=== PATIENT | female | born 1960 | race African-American/Black ===

== ENCOUNTER 2016-12-13 14:22 | Emergency (ER) | payer OTHER ==
[~2016-12-13] VITALS: Ht 167.6 cm; Wt 82.0 kg
[~2016-12-13 14:22] MED LIST: CHLO25TA24 PO; HYDR-3535 PO; LAMI150T PO; LISI-363 PO; LYRI100C PO; NAPR-576 PO; SUST600T4 PO; Z.0.WALKERFRONT
[2016-12-13] MEDS ORDERED: IOHEXOL 350 MG/ML 10 ML VIAL (for RAD DIAG) IVCONTRAST ONE (14:23)
[2016-12-13 14:24] VITALS: BP 141/86; PULSE 61; RESP 14; TEMP 98.8; O2SAT 96
--- NOTE | 2016-12-13 14:29 | PD ---
Physical Exam Time Seen by Provider: 14:28 Narrative Pt presents for evaluation of right sided facial swelling. Woke up this morning with the edema. No history of trauma. No known bites or stings. No dental pain. No fever or chills. Been well otherwise. No oral swelling or difficulty breathing. Data Data Last Documented VS Vital Signs Date Time Temp Pulse Resp B/P (MAP) Pulse Ox O2 Delivery O2 Flow Rate FiO2 12/13/16 22:23 12/13/16 19:15 98.1 45 98 Room Air 12/13/16 17:14 19 Orders Orders Complete Blood Count With Diff (12/13/16 16:00) Comprehensive Metabolic Panel (12/13/16 16:00) Ct Facial Bones W Iv Contrast (12/13/16 ) Iv Access Insert/Monitor (12/13/16 16:00) Iohexol 350 Inj (Omnipaque 350 Inj) (12/13/16 14:23) Clindamycin (Cleocin) (12/13/16 22:00) Labs Laboratory Tests Test 12/13/16 16:30 12/13/16 18:25 White Blood Count 5.6 TH/MM3 Red Blood Count 4.19 MIL/MM3 Hemoglobin 13.6 GM/DL Hematocrit 39.4 % Mean Corpuscular Volume 94.1 FL Mean Corpuscular Hemoglobin 32.5 PG Mean Corpuscular Hemoglobin Concent 34.6 % Red Cell Distribution Width 15.2 % Platelet Count 297 TH/MM3 Mean Platelet Volume 7.9 FL Neutrophils (%) (Auto) 51.1 % Lymphocytes (%) (Auto) 35.6 % Monocytes (%) (Auto) 10.6 % Eosinophils (%) (Auto) 1.9 % Basophils (%) (Auto) 0.8 % Neutrophils # (Auto) 2.8 TH/MM3 Lymphocytes # (Auto) 2.0 TH/MM3 Monocytes # (Auto) 0.6 TH/MM3 Eosinophils # (Auto) 0.1 TH/MM3 Basophils # (Auto) 0.0 TH/MM3 CBC Comment DIFF FINAL Differential Comment Blood Urea Nitrogen 19 MG/DL Creatinine 1.31 MG/DL Random Glucose 106 MG/DL Total Protein 7.1 GM/DL Albumin 3.2 GM/DL Calcium Level 8.5 MG/DL Alkaline Phosphatase 80 U/L Aspartate Amino Transf (AST/SGOT) 15 U/L Alanine Aminotransferase (ALT/SGPT) 14 U/L Total Bilirubin 0.2 MG/DL Sodium Level 143 MEQ/L Potassium Level 3.7 MEQ/L Chloride Level 108 MEQ/L Carbon Dioxide Level 27.1 MEQ/L Anion Gap 8 MEQ/L Estimat Glomerular Filtration Rate 51 ML/MIN MDM Medical Record Reviewed: Yes Supervised Visit with TYRA: No Scripts Clindamycin (Clindamycin) 300 Mg Cap 300 MG PO Q6H for Infection for 10 Days, #40 CAP 0 Refills Prov: Clari Duong 12/13/16 Condition: Stable Linda Stacy Dec 13, 2016 14:29
--- NOTE | 2016-12-13 16:03 | PD ---
HPI Chief Complaint: Facial Pain or Swelling Time Seen by Provider: 15:50 Travel History International Travel<30 days: No Contact w/Intl Traveler<30days: No Traveled to known affect area: No History of Present Illness HPI 56-year-old female with history of HIV who reports an undetectable viral load per her infectious disease physician Dr. Fleming, on antiretroviral medication, presents for evaluation of facial swelling. She reports that she woke up this morning with right-sided facial swelling. She reports some pain with palpation of the right side of her face. The pain is an aching pain is worse with palpation. She denies any facial trauma, she denies any acute dental pain but she does endorse some chronic dental pain. She denies any fevers, chills, new medications, creams, lotions, detergents. She denies any swelling of the throat or the lips, tongue, legs. She is never had this problem before. She has no other complaints at this time. PFSH Past Medical History Arthritis: No Autoimmune Disease: Yes Blood Disorders: No Anxiety: Yes Depression: Yes Heart Rhythm Problems: No Cancer: No Cardiovascular Problems: No High Cholesterol: Yes Chemotherapy: No Chest Pain: No Congestive Heart Failure: No COPD: No Cerebrovascular Accident: No Diabetes: No Diminished Hearing: No Endocrine: No GERD: No Genitourinary: No Headaches: Yes Hiatal Hernia: No Hypertension: Yes Immune Disorder: Yes (HIV+) Kidney Stones: No Musculoskeletal: No Neurologic: No Psychiatric: Yes Reproductive: No Respiratory: No Migraines: No Radiation Therapy: No Renal Failure: No Seizures: No Sickle Cell Disease: No Sleep Apnea: No Thyroid Disease: No Ulcer: No Menopausal: Yes : 7 Para: 7 Tubal Ligation: Yes Past Surgical History Abdominal Surgery: No AICD: No Cardiac Surgery: No Section: Yes Endocrine Surgery: No Eye Surgery: No Genitourinary Surgery: No Gynecologic Surgery: No Joint Replacement: No Oral Surgery: No Pacemaker: No Thoracic Surgery: No Other Surgery: No Social History Alcohol Use: No Tobacco Use: Yes (10 CIGS A DAY) Substance Use: Yes (COCAINE) Allergies-Medications (Allergen,Severity, Reaction): Coded Allergies: *MDRO Multi-Drug Resistant Organism (Unverified Adverse Reaction, Unknown , 12/13/16) MRSA Reported Meds & Prescriptions Reported Meds & Active Scripts Active Reported Lyrica (Pregabalin) 100 Mg Cap 100 Mg PO TID Naproxen 500 Mg Tab 500 Mg PO BID Lisinopril 20 Mg Tab 20 Mg PO DAILY Lamivudine-Zidovudine 150-300 Mg Tab 1 Tab PO BID Lortab (Hydrocodone-Acetaminophen) 10-325 Mg Tab 1 Tab PO Q6H PRN Sustiva (Efavirenz) 600 Mg Tab 600 Mg PO DAILY Chlorthalidone 25 Mg Tab 25 Mg PO DAILY Review of Systems Except as stated in HPI: all other systems reviewed are Neg Physical Exam Narrative GENERAL: Well-developed well-nourished female in no acute distress SKIN: Warm and dry. HEAD: Atraumatic. Normocephalic. EYES: Pupils equal and round. No scleral icterus. No injection or drainage. ENT: No nasal bleeding or discharge. There is some nonspecific soft tissue swelling to the right cheek and gingival region which is tender to palpation. There is no skin erythema, there is mild generalized dental decay. No trismus. No sublingual edema. NECK: Trachea midline. No JVD. No lymphadenopathy. CARDIOVASCULAR: Regular rate and rhythm. No murmur appreciated. RESPIRATORY: No accessory muscle use. Clear to auscultation. Breath sounds equal bilaterally. GASTROINTESTINAL: Abdomen soft, non-tender, nondistended. Hepatic and splenic margins not palpable. MUSCULOSKELETAL: No obvious deformities. No clubbing. No cyanosis. No edema. NEUROLOGICAL: Awake and alert. No obvious cranial nerve deficits. Motor grossly within normal limits. Normal speech. PSYCHIATRIC: Appropriate mood and affect; insight and judgment normal. Data Data Last Documented VS Vital Signs Date Time Temp Pulse Resp B/P (MAP) Pulse Ox O2 Delivery O2 Flow Rate FiO2 12/13/16 17:14 47 19 12/13/16 17:14 98.3 152/83 (106) 97 Room Air Orders Orders Complete Blood Count With Diff (12/13/16 16:00) Comprehensive Metabolic Panel (12/13/16 16:00) Ct Facial Bones W Iv Contrast (12/13/16 ) Iv Access Insert/Monitor (12/13/16 16:00) Labs Laboratory Tests Test 12/13/16 16:30 White Blood Count 5.6 TH/MM3 Red Blood Count 4.19 MIL/MM3 Hemoglobin 13.6 GM/DL Hematocrit 39.4 % Mean Corpuscular Volume 94.1 FL Mean Corpuscular Hemoglobin 32.5 PG Mean Corpuscular Hemoglobin Concent 34.6 % Red Cell Distribution Width 15.2 % Platelet Count 297 TH/MM3 Mean Platelet Volume 7.9 FL Neutrophils (%) (Auto) 51.1 % Lymphocytes (%) (Auto) 35.6 % Monocytes (%) (Auto) 10.6 % Eosinophils (%) (Auto) 1.9 % Basophils (%) (Auto) 0.8 % Neutrophils # (Auto) 2.8 TH/MM3 Lymphocytes # (Auto) 2.0 TH/MM3 Monocytes # (Auto) 0.6 TH/MM3 Eosinophils # (Auto) 0.1 TH/MM3 Basophils # (Auto) 0.0 TH/MM3 CBC Comment DIFF FINAL Differential Comment MDM Medical Decision Making Medical Screen Exam Complete: Yes Emergency Medical Condition: Yes Medical Record Reviewed: Yes Differential Diagnosis Periodontal abscess, acute allergic reaction, erysipelas, facial cellulitis, angioedema, nephrotic syndrome, renal failure Narrative Course 56-year-old female with history of HIV presents with one-day history of right- sided facial swelling, pain. On examination she has focal soft tissue swelling to the right cheek which is tender to palpation. Plan is for basic lab work, CT of the facial bones with IV contrast to further assess the issue. Patient was moved into a different part of the emergency room and care was signed out to the provider there to disposition pending lab work and imaging studies. Condition: Stable Yony Medina Dec 13, 2016 16:03
[2016-12-13 16:42] LABS: AUTOMATED NEUTROPHIL # 2.8 TH/MM3 (1.8-7.7); BASOPHIL % 0.8 % (0.0-2.0); EOSINOPHIL # 0.1 TH/MM3 (0-0.4); EOSINOPHIL % 1.9 % (0.0-4.0); HEMATOCRIT 39.4 % (35.0-46.0); HEMO FLAGS DIFF FINAL; LYMPH % 35.6 % (9.0-44.0); MEAN CELL VOLUME 94.1 FL (80.0-100.0); MEAN CORPUSCULAR HEMOGLOBIN 32.5 PG (27.0-34.0); MEAN CORPUSCULAR HGB CONC 34.6 % (32.0-36.0); MONO % 10.6 % (0.0-8.0); NEUT % 51.1 % (16.0-70.0); PLATELET COUNT 297 TH/MM3 (150-450); RED BLOOD COUNT 4.19 MIL/MM3 (4.00-5.30); RED CELL DISTRIBUTION WIDTH 15.2 % (11.6-17.2); WHITE BLOOD COUNT 5.6 TH/MM3 (4.0-11.0)
[2016-12-13 17:14] VITALS: BP 152/83; PULSE 47; RESP 19; TEMP 98.3; O2SAT 97
[2016-12-13] MEDS ORDERED: NAPR500T PO (17:20)
[2016-12-13] MEDS ORDERED: SUST600T PO (17:20)
[2016-12-13] MEDS ORDERED: CHLO25TA2 PO (17:20)
[2016-12-13] MEDS ORDERED: LAMI150T PO (17:20)
[2016-12-13] MEDS ORDERED: LISI-515 PO (17:20)
[2016-12-13] MEDS ORDERED: HYDR-3535 PO (17:20)
[2016-12-13] MEDS ORDERED: LYRI100C PO (17:20)
--- NOTE | 2016-12-13 18:07 | PD ---
Physical Exam Date Seen by Provider: Dec 13, 2016 Time Seen by Provider: 18:02 Narrative Patient was initially evaluated pressure and transferred to sd for further evaluation and disposition. Patient is a 56-year-old female history HIV on antiretrovirals. She states her viral load is undetectable. She reports with right-sided facial swelling that started today. She does state that she would have dental work couple of months ago and was told she had a "bubble" in her gumline and they were unable to the dental work. She denies any complication until now. No fevers or chills. No other complaints. GENERAL: Well-nourished, well-developed female patient, afebrile. SKIN: Focused skin assessment warm/dry. HEAD: Normocephalic. Atraumatic. Patient has right facial swelling. No Gustavo 's angina. ENT: Mucosa pink and moist. No erythema or exudates. No uvular edema. No uvular , palatal, or tonsillar deviation. Airway patent. Nasal turbinates appear normal without nasal blood, purulent drainage or septal hematoma. Patient does have tenderness to upper right gum line. EYES: No scleral icterus. No injection or drainage. NECK: Supple, trachea midline. No JVD or lymphadenopathy. CARDIOVASCULAR: Regular rate and rhythm without murmurs, gallops, or rubs. RESPIRATORY: Breath sounds equal bilaterally. No accessory muscle use. Lungs sounds are clear to auscultation GASTROINTESTINAL: Abdomen soft, non-tender, nondistended. MUSCULOSKELETAL: No cyanosis, or edema. BACK: Nontender without obvious deformity. No CVA tenderness. Data Data Last Documented VS Vital Signs Date Time Temp Pulse Resp B/P (MAP) Pulse Ox O2 Delivery O2 Flow Rate FiO2 12/13/16 19:15 98.1 45 169/81 (110) 98 Room Air 12/13/16 17:14 19 Orders Orders Complete Blood Count With Diff (12/13/16 16:00) Comprehensive Metabolic Panel (12/13/16 16:00) Ct Facial Bones W Iv Contrast (12/13/16 ) Iv Access Insert/Monitor (12/13/16 16:00) Iohexol 350 Inj (Omnipaque 350 Inj) (12/13/16 14:23) Clindamycin (Cleocin) (12/13/16 22:00) Labs Laboratory Tests Test 12/13/16 16:30 12/13/16 18:25 White Blood Count 5.6 TH/MM3 Red Blood Count 4.19 MIL/MM3 Hemoglobin 13.6 GM/DL Hematocrit 39.4 % Mean Corpuscular Volume 94.1 FL Mean Corpuscular Hemoglobin 32.5 PG Mean Corpuscular Hemoglobin Concent 34.6 % Red Cell Distribution Width 15.2 % Platelet Count 297 TH/MM3 Mean Platelet Volume 7.9 FL Neutrophils (%) (Auto) 51.1 % Lymphocytes (%) (Auto) 35.6 % Monocytes (%) (Auto) 10.6 % Eosinophils (%) (Auto) 1.9 % Basophils (%) (Auto) 0.8 % Neutrophils # (Auto) 2.8 TH/MM3 Lymphocytes # (Auto) 2.0 TH/MM3 Monocytes # (Auto) 0.6 TH/MM3 Eosinophils # (Auto) 0.1 TH/MM3 Basophils # (Auto) 0.0 TH/MM3 CBC Comment DIFF FINAL Differential Comment Blood Urea Nitrogen 19 MG/DL Creatinine 1.31 MG/DL Random Glucose 106 MG/DL Total Protein 7.1 GM/DL Albumin 3.2 GM/DL Calcium Level 8.5 MG/DL Alkaline Phosphatase 80 U/L Aspartate Amino Transf (AST/SGOT) 15 U/L Alanine Aminotransferase (ALT/SGPT) 14 U/L Total Bilirubin 0.2 MG/DL Sodium Level 143 MEQ/L Potassium Level 3.7 MEQ/L Chloride Level 108 MEQ/L Carbon Dioxide Level 27.1 MEQ/L Anion Gap 8 MEQ/L Estimat Glomerular Filtration Rate 51 ML/MIN [facility] Medical Record Reviewed: Yes Supervised Visit with TYRA: No Interpretation(s) CT facial bones with contrast - CONCLUSION: 1. Induration of the fat at the inferior right side of the face likely from cellulitis. An abscess is not seen. 2. Focal soft tissue swelling at the left frontal scalp region. 3. Minimal right maxillary sinus mucosal thickening. Differential Diagnosis Dental abscess versus facial cellulitis versus facial abscess Narrative Course 36-year-old female presents to the emergency department for evaluation of facial swelling and pain that started today. Patient was initially seen in fast track and then transferred to medical pod. CBC, CMP, CT facial bones were any contrast are ordered and pending. CBC shows no acute abnormality. Normal WBC of 5.6. CMP shows no acute abnormality. CT of the facial bones with IV contrast shows induration of the fat at the inferior right side of the face likely from cellulitis. An abscess is not seen; focal soft tissue swelling at the left frontal scalp region; minimal right maxillary sinus mucosal thickening. Patient was discharged with a prescription for clindamycin. She is given her first dose in the emergency department. Patient wants to go home and is hungry. She is to return for any acute, worsening of symptoms. She is to follow up with her primary care physician. She verbalizes agreement and understanding. The patient was discharged in stable condition with instructions, including return instructions and follow up instructions. Diagnosis Primary Impression: Facial cellulitis Referrals: Primary Care Physician call for appointment Patient Instructions: Cellulitis (ED), General Instructions Additional Instruction: Take antibiotic as directed until gone. Warm compresses for 15-20 mins 4-5 times daily. Follow up with your primary care physician. Return to the emergency department for any acute, worsening of symptoms. Med/Other Pt SpecificInfo: Prescription(s) given Scripts Clindamycin (Clindamycin) 300 Mg Cap 300 MG PO Q6H for Infection for 10 Days, #40 CAP 0 Refills Prov: Clari Duong 12/13/16 Disposition: 01 DISCHARGE HOME Condition: Stable Clari Duong Dec 13, 2016 18:07
[2016-12-13 19:15] VITALS: BP 169/81; PULSE 45; TEMP 98.1; O2SAT 98
[2016-12-13 19:51] LABS: ANION GAP 8 MEQ/L (5-15); AST (GOT) 15 U/L (15-37); BICARBONATE 27.1 MEQ/L (21.0-32.0); BLOOD UREA NITROGEN 19 MG/DL (7-18); CHLORIDE 108 MEQ/L (98-107); GLOMERULAR FILTRATION RATE 51 ML/MIN (>89); POTASSIUM 3.7 MEQ/L (3.5-5.1); SODIUM (NA) 143 MEQ/L (136-145)
[2016-12-13 19:52] LABS: ALT (GPT) 14 U/L (10-53)
[2016-12-13 19:55] LABS: ALKALINE PHOSPHATASE 80 U/L (45-117); TOTAL BILIRUBIN ADULT 0.2 MG/DL (0.2-1.0)
--- NOTE | 2016-12-13 21:38 | RADRPT ---
EXAM DATE/TIME: 12/13/2016 20:09 [facility] COMPARISON: No previous studies available for comparison. INDICATIONS : Right sided facial swelling IV CONTRAST: 72 cc Omnipaque 350 (iohexol) IV RADIATION DOSE: 36.69 CTDIvol (mGy) MEDICAL HISTORY : Hypertension. HIV. SURGICAL HISTORY : Tubal ligation. section. ENCOUNTER: Initial ACUITY: 1 day PAIN SCALE: 5/10 LOCATION: Right facial TECHNIQUE: Volumetric scanning of the facial bones was performed. Using automated exposure control and adjustme nt of the mA and/or kV according to patient size, radiation dose was kept as low as reasonably achiev able to obtain optimal diagnostic quality images. DICOM format image data is available electronicall y for review and comparison. FINDINGS: ORBITS: The orbital and infraorbital osseous structures are intact. The retroconal structures have a normal configuration. No radiopaque foreign bodies are seen. NASAL BONE: The nasal bone and maxillary spine are intact ZYGOMATIC ARCHES: Symmetric without evidence of fracture. SINUSES: There is minimal mucosal thickening at the right maxillary sinus. There is a small 4 mm osteoma at th e left anterior ethmoid sinus region. NASAL CAVITY: The nasal septum is intact and midline. The lacrimal ducts are intact. SOFT TISSUES: There is induration of the fat at the inferior right side of face. No focal fluid collection is seen. There is mild focal soft tissue swelling in the left frontal scalp region. INTRACRANIAL: No intracranial air seen. CRIBIFORM PLATE: Grossly intact. CONCLUSION: 1. Induration of the fat at the inferior right side of the face likely from cellulitis. An abscess is not seen. 2. Focal soft tissue swelling at the left frontal scalp region. 3. Minimal right maxillary sinus mucosal thickening. Benito Rodriguez MD on December 13, 2016 at 21:32 Board Certified Radiologist. This report was verified electronically.
[2016-12-13] MEDS ORDERED: CLIN1CAP6 PO (21:57)
[2016-12-13] MEDS ORDERED: CLINDAMYCIN 150 MG CAP PO ONE (22:00)
== END 2016-12-13 22:23 | disposition home or self-care (01) ==
LOC: NEPC 14:22
DX: L03.211 Cellulitis of face (principal); Z21 Asymptomatic human immunodeficiency virus [HIV] infection status
CPT/HCPCS: 70487; 80053; 85025; 99285; Q9967